=== PATIENT | male | born 1945 ===

== ENCOUNTER 2017-02-03 16:07 | Emergency (ER) | payer BC ==
[2017-02-03 16:20] VITALS: BP 143/73
--- NOTE | 2017-02-03 16:48 | UC ---
Eye Complaint HPI - HPI Summary HPI Summary: Three days of left eye redness irritation and crusting this morning. Low grade fever, had severe bout with cat allergies last week. - History of Current Complaint Chief Complaint: UCEye Stated Complaint: LEFT EYE PROBLEM Time Seen by Provider: 02/03/17 16:16 Hx Obtained From: Patient Onset/Duration: Gradual Onset, Lasting Days, Worse Since - daily Timing: Days Severity Initially: Mild Severity Currently: Mild Location of Injury: Conjunctiva Character: Dull Associated Signs And Symptoms: Positive: Drainage (Clear). Negative: Vision Impairment Right, Vision Impairment Left, Fever, Swelling - Risk Factors Penetrating Injury Risk Factor: Negative Globe Rupture Risk Factors: Negative Acute Glaucoma Risk Factors: Negative Optic Artery Occlusion Risk Factors: Negative - Allergies/Home Medications Allergies/Adverse Reactions: Allergies Allergy/AdvReac Type Severity Reaction Status Date / Time No Known Allergies Allergy Verified 02/03/17 16:12 Home Medications: Home Medications Acetaminophen [Tylenol] 650 mg PO ONCE PRN 02/03/17 [History Confirmed 02/03/17] Aspirin [Aspirin 81 MG TAB] 81 mg PO DAILY 02/03/17 [History Confirmed 02/03/17] Dextromethorphan-Phenylephrine [Daytime Multi Symptom Col] 2 cap PO Q6H PRN [History Confirmed 02/03/17] Losartan TAB* [Cozaar TAB*] 50 mg PO DAILY 02/03/17 [History Confirmed 02/03/17] Multiple Vitamin [Multivitamins] 1 cap PO DAILY 02/03/17 [History Confirmed ] Rosuvastatin Calcium [Crestor] 5 mg PO DAILY 02/03/17 [History Confirmed ] PMH/Surg Hx/FS Hx/Imm Hx Previously Healthy: Yes - Surgical History Surgical History: Yes Surgery Procedure, Year, and Place: appy. hip resurfacing - Family History Known Family History: Negative: Respiratory Disease - Social History Occupation: Employed Part-time, Retired Lives: With Family Alcohol Use: Daily Alcohol Amount: 2 beers daily Substance Use Type: None Smoking Status (MU): Never Smoked Tobacco Review of Systems Constitutional: Fever Skin: Negative Eyes: Drainage, Eye Redness ENT: Negative Respiratory: Negative Cardiovascular: Negative Gastrointestinal: Negative Genitourinary: Negative Motor: Negative Neurovascular: Negative Musculoskeletal: Negative Neurological: Negative Psychological: Negative All Other Systems Reviewed And Are Negative: Yes Physical Exam Triage Information Reviewed: Yes Appearance: Well-Appearing, No Pain Distress, Well-Nourished Vital Signs: Initial Vital Signs Temp 99.3 F 02/03/17 16:15 Pulse 60 02/03/17 16:15 Resp 18 02/03/17 16:15 BP 143/73 02/03/17 16:15 Pulse Ox 98 02/03/17 16:15 Vital Signs Reviewed: Yes Eyes: Positive: Conjunctiva Inflamed - left, Discharge - left ENT Exam: Normal ENT: Positive: Normal ENT inspection, Hearing grossly normal, TMs normal Dental Exam: Normal Neck exam: Normal Neck: Positive: Supple, Nontender, No Lymphadenopathy Respiratory Exam: Normal Respiratory: Positive: Chest non-tender, Lungs clear, Normal breath sounds, No respiratory distress, No accessory muscle use Cardiovascular Exam: Normal Cardiovascular: Positive: RRR, No Murmur, Pulses Normal Abdominal Exam: Normal Musculoskeletal Exam: Normal Musculoskeletal: Positive: Strength Intact, ROM Intact Neurological Exam: Normal Psychological Exam: Normal Skin Exam: Normal Eye Complaint Course/Dx - Differential Dx/Diagnosis Differential Diagnosis/HQI/PQRI: Conjunctivitis, Corneal Abrasion Provider Diagnoses: LEFT CONJUNCTIVITIS Discharge - Discharge Plan Condition: Stable Disposition: HOME Prescriptions: Erythromycin OPHTH.OINT* [Ilotycin OPHTH.OINT*] 1 applic LEFT EYE TID #1 tube Patient Education Materials: Conjunctivitis (ED) Referrals: Abel Salinas MD [Primary Care Provider] -
== END 2017-02-03 16:42 | disposition home or self-care (01) ==
LOC: UCCORT 16:07
DX: H10.32 Unspecified acute conjunctivitis, left eye (principal)
CPT/HCPCS: 99202; G0463